=== PATIENT | male | born 1975 | race Hispanic/Latino ===

== ENCOUNTER 2020-11-05 06:38 | Observation (INO) | payer OTHER ==
[2020-10-30 16:14] LABS: BASOPHILS % (AUTO) 0.5 % (0.0-5.0); EOSINOPHILS % (AUTO) 1.5 % (0.0-8.0); HEMATOCRIT 40.6 % (42-54); MEAN CORPUSCULAR HEMOGLOBIN 29.3 pg (27.0-33.0); MEAN CORPUSCULAR HGB CONC 32.5 g/dL (32.0-36.0); MONOCYTES % (AUTO) 9.6 % (3.0-13.0); NEUTROPHILS % (AUTO) 63.1 % (40.0-77.0); PLATELET COUNT (AUTO) 233 K/uL (130-400); RED BLOOD CELL COUNT(AUTO) 4.51 MIL/uL (4.50-6.20); RED CELL DISTRIBUTION WIDTH 13.2 % (11.0-15.5)
[2020-10-30 16:24] LABS: CREATININE 1.2 mg/dL (0.5-1.5); POTASSIUM 5.3 mmol/L (3.5-5.1)
[2020-11-01 09:35] VITALS: BP 129/71
[2020-11-05] VITALS (30 sets, daily range): BP systolic 103–146; BP diastolic 35–81
[~2020-11-05] VITALS: Ht 165.1 cm; Wt 69.1 kg
[2020-11-05] MEDS: CEFAZOLIN SODIUM 1 GM VIAL IVP SCH ×2 (06:00→09:36)
[2020-11-05] MEDS: LACTATED RINGERS 1000ML 1,000 ML IV SCH ×2 (07:51→15:03)
[2020-11-05] MEDS ORDERED: LIDOCAINE PF 100MG/5ML (2%) SYRINGE 5ML ONE (09:31)
[2020-11-05] MEDS ORDERED: FENTANYL CITRATE PF 50 MCG/1 ML 2ML VIAL ONE ×3 (09:31→11:46)
[2020-11-05] MEDS ORDERED: PROPOFOL 10 MG/ML 20ML VIAL IV ONE (09:31)
[2020-11-05] MEDS ORDERED: ONDANSETRON 4MG INJ ONE (09:31)
[2020-11-05] MEDS ORDERED: DEXAMETHASONE SOD PHOSPHATE 10MG/ML 1ML VIAL ONE (09:31)
[2020-11-05] MEDS ORDERED: MIDAZOLAM HCL 1 MG/ML 2ML VIAL ONE (09:31)
[2020-11-05] MEDS ORDERED: CEFAZOLIN SODIUM 1 GM VIAL ONE ×2 (10:09→13:29)
[2020-11-05] MEDS ORDERED: 0.9%NACL 10ML VIAL ONE (13:00)
[2020-11-05] MEDS ORDERED: PHENYLEPHRINE HCL 10 MG/ML 1ML VIAL IV ONE (13:00)
[2020-11-05] MEDS ORDERED: FENTANYL CITRATE PF 50 MCG/1 ML 5ML AMP IV ONE (14:45)
[2020-11-05] MEDS ORDERED: MEPERIDINE-PF 25 MG/ML SYG ONE ×3 (15:09→16:18)
[2020-11-05] MEDS: CEFAZOLIN 3GM /D5W 100ML 100 ML IV SCH ×2 (15:30→21:08)
[2020-11-05] MEDS ORDERED: ACETAMINOPHEN 325 MG TAB PO PRN (15:30)
[2020-11-05] MEDS ORDERED: D5W-1/2 NS/20MEQ KCL 1,000 ML IV SCH (15:30)
[2020-11-05] MEDS ORDERED: ONDANSETRON 4MG INJ IVP PRN (15:30)
[2020-11-05] MEDS ORDERED: HYDROCODONE/ACETAMINOPHEN 5/325 MG TAB PO PRN (15:30)
[2020-11-05] MEDS: MORPHINE 2 MG SYG IM PRN (18:45)
[2020-11-05] MEDS: HYDROCODONE/ACETAMINOPHEN 5/325 MG TAB PO PRN (21:09)
[2020-11-06] MEDS: HYDROCODONE/ACETAMINOPHEN 5/325 MG TAB PO PRN ×3 (02:30→15:02)
[2020-11-06 03:55] VITALS: BP 120/55
[2020-11-06] MEDS: MORPHINE 2 MG SYG IM PRN (07:30)
[2020-11-06 08:09] VITALS: BP 122/72
[2020-11-06] MEDS ORDERED: CEFAZOLIN 3GM /D5W 100ML 100 ML IV ONE (09:00)
[2020-11-06 11:16] VITALS: BP 124/67
== END 2020-11-06 16:45 | disposition home or self-care (01) ==
LOC: DAH 06:38 → DAHIP 06:39 → 4AH 16:40
PROVIDERS: ADMIT Orthopaedic Surgery; ATTEND Orthopaedic Surgery
DX: S83.422A Sprain of lateral collateral ligament of left knee, initial encounter (principal); S83.512A Sprain of anterior cruciate ligament of left knee, initial encounter; M22.40 Chondromalacia patellae, unspecified knee; X58.XXXA Exposure to other specified factors, initial encounter; Y93.89 Activity, other specified; Y92.89 Other specified places as the place of occurrence of the external cause; Y99.0 Civilian activity done for income or pay
CPT/HCPCS: 27428; 29888; 36415; 73560; 80048; 85025; 87635; 96365; 96372 ×2; 97039 ×2; 97116 ×2; 97161; 97530; A4215; A4221; A4222; A4223; A4600; A4649 ×8; A4663; A4930; A6212; A6223; C1713 ×10; C1762; C9803; G0168; G0378 ×24; G8978; G8979; G8980; G8981; G8982; G8983; J0690 ×4; J1100; J2001; J2175 ×3; J2250; J2370; J2405; J2704; J3010 ×4; J7120 ×2